=== PATIENT | male | born 1965 | race Caucasian/White ===

== ENCOUNTER 2020-02-07 06:25 | Outpatient (CLI) | payer OTHER ==
[2020-02-07 18:11] LABS: #Eosinphils 0.1 thou/uL (0.0-0.7); #Lymphocytes 1.6 thou/uL (1.20-3.40); #Monocytes 0.8 thou/uL (0.11-0.59); #Neutrophils 5.2 thou/uL (1.40-6.50); %Basophils 0.5 % (0.0-1.0); %Eosinophils 1.6 % (0.0-10.0); %Monocytes 10.6 % (0.0-10.0); %Neutrophils 66.4 % (42.0-75.0); Hemoglobin 14.5 g/dL (14.0-18.0); Mean Corpuscular HGB CONC 32.3 g/dL (32.0-36.0); Mean Corpuscular Hemoglobin 29.9 pg (27.0-31.0); Mean Corpuscular Volume 92.6 fL (78.0-98.0); Mean Platelet Volume 9.8 fL (7.4-10.4); Platelet Count 220 thou/uL (130-400); RBC Distribution Width 12.9 % (11.5-14.5); Red Blood Cell (RBC) Count 4.86 mill/uL (4.70-6.10); White Blood Cell (WBC) Count 7.8 thou/uL (4.8-10.8)
[2020-02-07 18:32] LABS: ALT (SGPT) 16 U/L (8-55); AST (SGOT) 15 U/L (5-34); Albumin 4.1 g/dL (3.5-5.0); Alkaline Phosphatase 98 U/L (40-110); Anion Gap 13 mmol/L (10-20); BUN (Urea Nitrogen) 11 mg/dL (8.4-25.7); Bilirubin, Total 0.4 mg/dL (0.2-1.2); Calc. Creatinine Clearance 0 mL/min (70-130); Calcium 9.2 mg/dL (7.8-10.44); Carbon Dioxide 27 mmol/L (22-29); Chloride 105 mmol/L (98-107); Estimated GFR-MDRD 73; Globulin 3.1 g/dL (2.4-3.5); Glucose 79 mg/dL (70-105); Protein, Total 7.2 g/dL (6.0-8.3); Sodium 141 mmol/L (136-145)
--- NOTE | 2020-02-07 19:28 | RAD ---
SINGLE VIEW OF THE CHEST: 02/07/20 COMPARISON: None. HISTORY: Preoperative radiograph. FINDINGS: Single view of the chest shows a normal sized cardiomediastinal silhouette. There is no evidence of c onsolidation, mass, or pleural effusion. The bones are unremarkable. IMPRESSION: No evidence of acute cardiopulmonary disease. POS: E[facility]
[2020-02-08 16:30] LABS: SARS-CoV-2 MS2 Positive; SARS-CoV-2 N Gene Negative; SARS-CoV-2 S Gene Negative; SARS-CoV-2 orf1ab Negative
--- NOTE | 2020-02-09 12:20 | EKG ---
Test Reason : Blood Pressure : / mmHG Vent. Rate : 059 BPM Atrial Rate : 059 BPM P-R Int : 164 ms QRS Dur : 092 ms QT Int : 430 ms P-R-T Axes : 044 084 023 degrees QTc Int : 425 ms Sinus bradycardia Otherwise normal ECG No previous ECGs available Confirmed by YUDITH DEMARCO, DR. Lopez ([id number]) on 02/09/2020 12:19:58 PM Referred By: ANTONIO Confirmed By:DR. John ZURITA MD
== END 2020-02-07 06:26 | disposition home or self-care (01) ==
LOC: LABBT 06:25
PROVIDERS: ATTEND Internal Medicine Cardiovascular Disease
DX: Z01.818 Encounter for other preprocedural examination (principal); Z11.59 Encounter for screening for other viral diseases; R94.39 Abnormal result of other cardiovascular function study
CPT/HCPCS: 71045; 80053; 85025; 87635; 93005; 93010; U0003

== ENCOUNTER 2020-02-11 05:48 | Day surgery (SDC) | payer OTHER ==
[2020-02-07 16:16] VITALS: BMI 45.1
[2020-02-11] MEDS ORDERED: Heparin 10,000 UNITS/1 ML VIAL ONE (06:27)
[2020-02-11] MEDS ORDERED: Midazolam HCl 2 mg/2 ml Vial ONE (06:59)
[2020-02-11] MEDS ORDERED: Fentanyl 100 MCG/2 ML VIAL ONE (06:59)
[2020-02-11] MEDS ORDERED: Protamine Sulfate 50 MG/5 ML VIAL ONE (07:21)
[2020-02-11] MEDS ORDERED: traMADol HCl 50 MG TAB ONE ×2 (08:23→08:24)
[2020-02-11] MEDS ORDERED: Iopamidol 370 76% 50 ML VIAL FS ONE (09:42)
[2020-02-11] MEDS ORDERED: Iopamidol 370 76% 100 ML VIAL ONE (09:42)
== END 2020-02-11 15:00 | disposition home or self-care (01) ==
LOC: CCL 05:48
PROVIDERS: ATTEND Internal Medicine Cardiovascular Disease
PROC: B2111ZZ Fluoroscopy of Multiple Coronary Arteries using Low Osmolar Contrast (ICD-10-PCS; principal; 2020-02-11)
PROC: 4A023N7 Measurement of Cardiac Sampling and Pressure, Left Heart, Percutaneous Approach (ICD-10-PCS; principal; 2020-02-11)
DX: I25.10 Atherosclerotic heart disease of native coronary artery without angina pectoris (principal); I11.0 Hypertensive heart disease with heart failure; I50.42 Chronic combined systolic (congestive) and diastolic (congestive) heart failure; I48.91 Unspecified atrial fibrillation; E78.00 Pure hypercholesterolemia, unspecified; G47.33 Obstructive sleep apnea (adult) (pediatric); J98.9 Respiratory disorder, unspecified; E66.01 Morbid (severe) obesity due to excess calories; Z68.42 Body mass index [BMI] 45.0-49.9, adult; Z79.01 Long term (current) use of anticoagulants; Z79.899 Other long term (current) drug therapy; Z88.5 Allergy status to narcotic agent
CPT/HCPCS: 85347; 93458; 99152; C1769; J1644; J2250; J2720; J3010; Q9967